=== PATIENT | female | born 1995 | race African-American/Black ===

== ENCOUNTER 2018-10-18 18:08 | Emergency (ER) | payer SELFPAY ==
[2018-10-18] MEDS ORDERED: IBUPROFEN 800 MG TABLET PO ONE (19:04)
--- NOTE | 2018-10-18 19:10 | ER Document Report ---
ED General - General Chief Complaint: Vaginal Discharge Stated Complaint: LEG PAIN Time Seen by Provider: 10/18/18 18:56 Mode of Arrival: Ambulatory Information source: Patient Notes: This 23-year-old female presents emergency department with reports of vaginal irritation for the past 2 days. She reports her vagina felt tight at first. She took some Monistat which then made her vaginal area tingle gave her no relief. She then started having vaginal discharge. She denies itchiness. She denies odor. She reports she has had bilateral calf pain for the last couple days. Denies recent trip. Denies history of DVTs or PEs. Denies recent exercise or new shoes. Reports it hurts to walk. Has not taken anything for the pain. Patient reports she works at [employer] in [place] and is on her feet all the time. Patient reports she is sexually active with one partner and does not use condoms. She reports history of chlamydia and gonorrhea 5 months ago. She denies pain with void. Denies abdominal pain. She reports she is been eating and drinking without problems. TRAVEL OUTSIDE OF THE [place] IN LAST 30 DAYS: No - HPI Onset: Other Onset/Duration: Persistent Quality of pain: Achy Severity: Severe Pain Level: 5 Associated symptoms: None Exacerbated by: Movement, Walking Relieved by: Denies Similar symptoms previously: No Recently seen / treated by doctor: No Past Medical History - General Information source: Patient Last Menstrual Period: 09/17/18 - Social History Smoking Status: Current Every Day Smoker Cigarette use (# per day): Yes Frequency of alcohol use: None Drug Abuse: None Occupation: [employer] Family History: Reviewed & Not Pertinent - NO PE/DVT Patient has suicidal ideation: No Patient has homicidal ideation: No - Medical History Medical History: Negative Surgical Hx: Negative Physical Exam - Vital signs Vitals: Temp Pulse Resp BP Pulse Ox 99.3 F 110 H 18 152/99 H 98 10/18/18 18:12 10/18/18 18:12 10/18/18 18:12 10/18/18 18:12 10/18/18 18:12 - General General appearance: Appears well, Alert In distress: None - HEENT Head: Normocephalic, Atraumatic Eyes: Normal Conjunctiva: Normal Neck: Normal, Supple - Respiratory Respiratory status: No respiratory distress Breath sounds: Normal Chest palpation: Normal - Cardiovascular Rhythm: Regular Heart sounds: Normal auscultation Murmur: No - Abdominal Inspection: Normal Distension: No distension Tenderness: Nontender - Genitourinary External exam: Normal Speculum exam: Vaginal discharge Vaginal bleeding: None Bimanuel exam: Normal. No: Cervical motion tender, Adnexal mass, Adnexal tenderness - Back Back: Nontender - Extremities General upper extremity: Normal color, Normal strength General lower extremity: Normal color, Normal strength Calf: Normal, Tender, Other - No erythema no warmth no obvious swelling no deformity good pedal pulses good cap refills, no signs of DVT. No: Abrasion, Deformity, Ecchymosis, Instability, Laceration, Unable to bear weight Left calf in cm: 42 Right calf in cm: 42 Ankle: Edema Foot: Normal - Neurological Neuro grossly intact: Yes Cognition: Normal Orientation: AAOx4 Faina Coma Scale Eye Opening: Spontaneous Faina Coma Scale Verbal: Oriented [place] Coma Scale Motor: Obeys Commands Faina Coma Scale Total: 15 Speech: Normal Cranial nerves: Normal Cerebellar coordination: Normal - Psychological Associated symptoms: Normal affect, Normal mood - Skin Skin Temperature: Warm Skin Moisture: Dry Skin Color: Normal Course - Re-evaluation Re-evalutation: 10/18/18 19:10 This 23-year-old female presents emergency department with reports of vaginal irritation for the past 2 days. She reports her vagina felt tight at first. She took some Monistat which then made her vaginal area tingle gave her no relief. She then started having vaginal discharge. She denies itchiness. She denies odor. She reports she has had bilateral calf pain for the last couple days. Denies recent trip. Denies history of DVTs or PEs. Denies recent exercise or new shoes. Reports it hurts to walk. Has not taken anything for the pain. Patient reports she works at [employer] in [place] and is on her feet all the time. Patient reports she is sexually active with one partner and does not use condoms. She reports history of chlamydia and gonorrhea 5 months ago. She denies pain with void. Denies abdominal pain. She reports she is been eating and drinking without problems. Patient is ambulating around without any problems. Calves are symmetric bilaterally no erythema no swelling no warmth to either calf. 10/18/18 19:47 STD cultures are pending wet mount was negative for trichomonas yeast BV. Patient was instructed on results urine hCG is negative. Patient is not complaining of any kind of urinary symptoms. I informed patient that her STD cultures were pending she was given the option of being treated now if she thinks she has an STD waiting 3 hours for the results of the STD cultures or be notified by phone if they come back positive. Patient reports she does want to be notified. I instructed her that her urine has not finished but she is not complaining of any kind urinary symptoms. Dictation of this chart was performed using voice recognition software; therefore, there may be some unintended grammatical errors. - Vital Signs Vital signs: Temp Pulse Resp BP Pulse Ox 98.8 F 95 14 144/85 H 100 10/18/18 19:55 10/18/18 19:55 10/18/18 19:55 10/18/18 19:55 10/18/18 19:55 - Laboratory Laboratory results interpreted by me: 10/18/18 19:05 Urine Ketones TRACE H Urine Urobilinogen 4.0 H Ur Leukocyte Esterase LARGE H Urine Ascorbic Acid 20 H Procedures - Pelvic Exam Pelvic exam Cultures obtained: Yes Wet prep obtained: Yes Herpes culture obtained: No POC sent to lab: No Foreign body removed: No Bimanual exam performed: Yes Witnessed by: deann pct Discharge - Discharge Clinical Impression: Vaginal irritation, Bilateral calf pain Condition: Stable Disposition: HOME, SELF-CARE Instructions: [facility] [place] Additional Instructions: *You have been evaluated for vaginal discharge *The STD cultures are still pending. You will be contacted should your STD cultures come back positive for gonorrhea or chlamydia. You may also contact the culture nurse at [phone] Monday through Monday 8-4. If she does not answer you can leave a message and she will call you back. *Follow up with your [facility] TECHNIC[facility] or the health department for recheck in 1 week *Avoid sexual intercourse until follow up *Return to ED for worsening condition, changes, needs Monitor your blood pressure. Your blood pressure was elevated today. This may be because you were anxious, in pain or because you need medication. It is important to follow up with your primary care provider for full evaluation. Forms: Elevated Blood Pressure
[2018-10-18 19:40] LABS: RBCS (WET MOUNT) 1+ RBCS SEEN; T.VAGINALIS (WET MOUNT) NO TRICHOMONAS SEEN; WBCS (WET MOUNT) 2+ WBCS SEEN; YEAST (WET MOUNT) NO YEAST SEEN
[2018-10-18 19:49] LABS: APPEARANCE,URINE SLIGHTLY-CLOUDY; BILIRUBIN,URINE NEGATIVE (NEGATIVE); COLOR,URINE YELLOW; GLUCOSE, URINE NEGATIVE (NEGATIVE); KETONES,URINE TRACE mg/dL (NEGATIVE); LEUKOCYTE ESTERASE,URINE LARGE (NEGATIVE); NITRITE,URINE NEGATIVE (NEGATIVE); PROTEIN,URINE NEGATIVE (NEGATIVE); URINE SPECIFIC GRAVITY 1.027
[2018-10-18 19:53] LABS: ADD MANUAL MICROSCOPIC YES
[2018-10-18 19:54] LABS: BACTERIA,URINE TRACE /HPF
[2018-10-18 19:56] VITALS: BP 144/85
[2018-10-18 21:13] LABS: CHLAM PCR NOT DETECTED (NOT DETECT)
== END 2018-10-18 19:56 | disposition home or self-care (01) ==
LOC: ER 18:08
DX: N76.89 Other specified inflammation of vagina and vulva (principal); M79.604 Pain in right leg; M79.605 Pain in left leg; F17.210 Nicotine dependence, cigarettes, uncomplicated
CPT/HCPCS: 81001; 81025; 87210; 87491; 87591; 99283